=== PATIENT | female | born 1960 | race Caucasian/White ===

== ENCOUNTER 2016-12-04 14:06 | Emergency (ER) | payer OTHER, SELFPAY ==
[2016-12-04] MEDS ORDERED: Ondansetron ODT 4 MG TAB ONE (15:07)
--- NOTE | 2016-12-04 15:29 | ERRECORD ---
[facility] EMERGENCY RECORD HPI HEAD INJURY (14:40 WMEI) CHIEF COMPLAINT: Patient presents for evaluation of head injury. HISTORIAN: History provided by patient. MECHANISM OF INJURY: Mechanism of injury: Blunt trauma, by direct blow, pipe fell on crown of head no loc but dazed and weak kneed able to ambulate. LOCATION: Symptoms are localized, most severe in the crown midline. TIME COURSE: Sudden onset of symptoms, 1, hours prior to arrival. ASSOCIATED WITH: No associated dizziness, Associated with nausea, No associated vomiting. RELIEVED BY: Patient's condition relieved by nothing. ROS (14:43 WMEI) CONSTITUTIONAL: Historian denies chills, denies fever, denies lethargy. EYES: Historian denies eye pain, denies eye discharge. ENT: Historian denies rhinorrhea, denies sore throat. CARDIOVASCULAR: Historian denies chest pain, no radiation. RESPIRATORY: Historian denies cough, denies shortness of breath. GI: Historian denies abdominal pain, reports nausea. GENITOURINARY FEMALE: Historian denies urgency. MUSCULOSKELETAL: Historian denies back pain, denies fall. SKIN: Historian denies skin changes, denies skin lesions. NEUROLOGIC: Historian denies confusion, denies dizziness, denies focal weakness, denies mental status changes. PSYCHIATRIC: Historian denies alcohol abuse, denies memory loss, denies phobias. PAST MEDICAL HISTORY (14:12 LGIB) MEDICAL HISTORY: Flu vaccine not up to date, Tetanus immunization up to date, Pneumococcal vaccine not up to date, Past medical history includes musculoskeletal disorder, ankylosing spondylitis, Past medical history includes pulmonary disease, chronic obstructive pulmonary disease, PNEUMONIA IN 2012-HOSPITALIZED. Past medical history includes gastrointestinal disease, gastroesophageal reflux disease. FEMALE SURGICAL HISTORY: COLON POLYPS, RIGHT BREAST-TOOK OUT 1/3 OF BREAST-NON CANCEROUS, Surgical history of appendectomy, Surgical history of hysterectomy, Surgical history of tonsillectomy.bilat shoulder surgeries, artifial lt knee, plate to neck. 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 PSYCHIATRIC HISTORY: Psychiatric history includes, anxiety,. SOCIAL HISTORY: Patient denies alcohol use, Patient denies drug use, Patient is a former tobacco user. FAMILY HISTORY: Paternal history of cardiac disease:, coronary artery disease, Treated with stent placement, PACEMAKER, Maternal history of cardiac disease, congestive heart failure, myocardial infarction, arrhythmia, atrial fibrillation, Maternal &a-1R&a+25V*p+0X*[id number]*c202B*c15G*c2P*p-0X&a-25V&a+1R Name: Ann Villalobos : 1960 F56 MedRec: [id number] AcctNum: [id number] Prepared: Sat Dec 04, 2016 19:52 by Interface Page 1 of 3 pMD [facility] EMERGENCY RECORD history of malignancy, primary site colon, treated with chemotherapy, treated with radiation, treated with surgery, Maternal history of pulmonary disease, chronic obstructive pulmonary disease, Offspring history of cardiac disease, TETRALOGY OF FALLOT. KNOWN ALLERGIES Adult Aspirin: Reaction: Nausea, - upset stomach penicillin G sodium (Unconfirmed) Penicillins Serzone CURRENT MEDICATIONS (14:11 LGIB) None VITAL SIGNS VITAL SIGNS: BP: 127/77, Pulse: 72, Resp: 16 (Non-Labored), Temp: 98 (Oral), Pain: 9, O2 sat: 100 on Room Air, Time: 12/04/2016 14:12. (14:12 LGIB) BP: 125/87, Pulse: 81, Resp: 16 (Non-Labored), O2 sat: 97 on Room Air, Time: 12/04/2016 15:07. (15:07 LGIB) PHYSICAL EXAM (14:46 WMEI) CONSTITUTIONAL: Vital Signs Reviewed, Patient appears non toxic, Patient alert and oriented to person, place and time. HEAD: no Robles's sign, No racoon sign, No contusions, no abrasions, No Lacerations, normocephalic. EYES: Pupils equally round and reactive to light, Extraocular muscles intact, Conjunctiva normal, Sclera normal. ENT: Ear exam normal, Nose exam normal, Pharynx exam normal. NECK: Neck exam included findings of normal range of motion, Trachea midline. RESPIRATORY CHEST: Breath sounds clear, Chest exam included findings of chest movement symmetrical. CARDIOVASCULAR: Cardiovascular exam included findings of heart rate regular rate and rhythm, Heart sounds normal. ABDOMEN FEMALE: Abdominal exam included findings of abdomen nontender, Bowel sounds normal. BACK: Back exam included findings of normal inspection, range of motion normal. UPPER EXTREMITY: Upper extremity exam included findings of inspection normal, Range of motion normal, Motor strength normal. LOWER EXTREMITY: Lower extremity exam included findings of inspection normal, Range of motion normal, Motor strength normal. NEURO: [place] coma scale 15, Neuro exam findings include patient oriented to person, place and time, Speech normal, Gait normal. SKIN: Skin exam included findings of skin warm, dry, and normal in color. LYMPHATIC: Lymphatic exam normal. PSYCHIATRIC: Psychiatric exam included findings of patient oriented to person place and time, Normal affect, Judgment normal, &a-1R&a+25V*p+0X*x6134H*c202B*c15G*c2P*p-0X&a-25V&a+1R Name: Ann Villalobos : 1960 F56 MedRec: [id number] AcctNum: [id number] Prepared: Sat Dec 04, 2016 19:52 by Interface Page 2 of 3 pMD [facility] EMERGENCY RECORD Insight normal. RADIOLOGYINTERPRETATION (14:57 WMEI) CORN CUTTER: Preliminary review of CT scans by, Radiologist, negative of head. MEDICATION ADMINISTRATION SUMMARY Drug Name: Zofran ODT, Dose Ordered: 4 mg, Route: Sublingual, Status: Given, Time: 15:15 12/04/2016, Detailed record available in Medication Service section. PROBLEM LIST No recorded problems DIAGNOSIS (14:59 WMEI) FINAL: PRIMARY: Head injury, no LOC. PRESCRIPTION No recorded prescriptions DISPOSITION PATIENT: Disposition Type: Discharge, Disposition: *Discharge Home. (14:59 WMEI) Patient left the department. (15:19 LGIB) Cintron: LGIB=SAEED Sanford Lauren WMEI=DO Nevarez William &a-1R&a+25V*p+0X*[id number]*c202B*c15G*c2P*p-0X&a-25V&a+1R Name: Ann Villalobos : 1960 F56 MedRec: [id number] AcctNum: [id number] Prepared: Sat Dec 04, 2016 19:52 by Interface Page 3 of 3 pMD MTDD
--- NOTE | 2016-12-04 15:33 | PICIS ---
[facility] EMERGENCY RECORD TRIAGE ([facility] Dec 04, 2016 14:10 LGIB) TRIAGE NOTES: a metal pipe that was leaned up against a wall fell and hit pt in head. AOX4, NAD, RR EVEN AND UNLABORED. ANSWERS QUESTIONS APPROPRIATELY. top of head hurts. ([facility] Dec 04, 2016 14:10 LGIB) PATIENT: NAME: Ann Villalobos, AGE: 56, GENDER: female, : Tue1960, TIME OF GREET: [facility] Dec 04, 2016 14:07, PREFERRED LANGUAGE: Ugandan, ETHNICITY: Not or , HIGH ALERT: HIGH ALERT 4, ECODE BILLING MAP: [facility], SSN: [id number], Zip Code: [address], KG WEIGHT: 58.97, PHONE: , , , PERSON ID: [id number], PCP: DO GONZALEZ KRISTEL. ([facility] Dec 04, 2016 14:10 LGIB) PAYMENT: [facility] Self Pay. (14:54) COMPLAINT: HIGH RISK COMPLAINT: Head Injury. ([facility] Dec 04, 2016 14:10 LGIB) ADMISSION: URGENCY: 3 Urgent, ADMISSION SOURCE: Home, TRANSPORT: CAR, BED: ER -03. ([facility] Dec 04, 2016 14:10 LGIB) SIRS SCORING: Heart Rate 55-109 (0), Temp range 96.8-101.1 (0), respiratory rate 12-24 (0), Mental Status altered: no (0), Total SIRS Score 0. (14:22 LGIB) TREATMENTS IN PROGRESS: Treatments given Prehospital: none. (14:12 LGIB) PROVIDERS: TRIAGE NURSE: Sharon Sanford RN. ([facility] Dec 04, 2016 14:10 LGIB) PREVIOUS VISIT ALLERGIES: Adult Aspirin, penicillin G sodium, Serzone. ([facility] Dec 04, 2016 14:10 LGIB) Adult Aspirin, penicillin G sodium, Serzone. (14:12 LGIB) KNOWN ALLERGIES Adult Aspirin: Reaction: Nausea, - upset stomach penicillin G sodium (Unconfirmed) Penicillins Serzone CURRENT MEDICATIONS (14:11 LGIB) None VITAL SIGNS VITAL SIGNS: BP: 127/77, Pulse: 72, Resp: 16 (Non-Labored), Temp: 98 (Oral), Pain: 9, O2 sat: 100 on Room Air, Time: 12/04/2016 14:12. (14:12 LGIB) BP: 125/87, Pulse: 81, Resp: 16 (Non-Labored), O2 sat: 97 on Room Air, Time: 12/04/2016 15:07. (15:07 LGIB) NURSING ASSESSMENT: NEURO (14:22 LGIB) GCS: (6) Obeying command:, (5) Orientated:, (4) Spontaneous eye opening., Result: 15. CONSTITUTIONAL: Complex assessment performed, Patient arrives, via hospital wheelchair, Gait steady, History obtained from patient, Patient appears comfortable, Patient cooperative, Patient alert, &a-1R&a+25V*p+0X*z4994G*c202B*c15G*c2P*p-0X&a-25V&a+1R Name: Ann Villalobos : 1960 F56 MedRec: [id number] AcctNum: [id number] Prepared: Sat Dec 04, 2016 19:52 by Interface Page 1 of 5 pMD [facility] EMERGENCY RECORD Oriented to person, place and time, Skin warm, Skin dry, Skin normal in color, Mucous membranes pink, Mucous membranes moist, Patient is well-groomed, Patient complains of HEAD INJURY, METAL PIPE HIT HEAD WHEN IT FELL FROM BEING LEANED AGAINST A WALL. PT IS AOX4, ANSWERING QUESTIONS APPROPRIATELY. PAIN: aching pain, diffusely to the head, on a scale 0-10 patient rates pain as 9, Nothing has been tried to alleviate the pain. NEURO: Pupils equally round and reactive to light, Left pupil 3 mm in size, Right pupil 3 mm in size, Able to close eyes, Face symmetrical, Speech normal, Hand grasps equal, Upper extremity strength strong, no numbness to upper extremities, Lower extremity strength strong, Foot press equal, no numbness to lower extremities. ENT: Ear assessment findings include ear normal to inspection, Nasal assessment findings include nose normal to inspection, Mouth and throat assessment findings include mouth inspection normal. SAFETY: Side rails up, Cart/Stretcher in lowest position, Call light within reach, Hospital ID band on. NURSING PROCEDURE: DISCHARGE NOTE (15:20 LGIB) DISCHARGE: Patient discharged to home, ambulating without assistance, friend driving, unaccompanied, Summary of Care printed/ provided, Patient requested and was provided an electronic copy of Discharge Instructions, Discharge instructions given to patient, Simple or moderate discharge teaching performed, Above person(s) verbalized understanding of discharge instructions and follow-up care, Patient treated and evaluated by physician. BELONGINGS: Belongings and valuables with patient at time of discharge include:, Belongings remain with patient, Valuables remain with patient. ORDER DETAILS Order Name: CT Brain WO Con, Status: Active, Time: 14:40 12/04/2016, User: [facility], - Ordered for: DO Nevarez William, - Entered by: DO Nevarez William - Sat Dec 04, 2016 14:40, - Quantity: 1. MEDICATION ADMINISTRATION SUMMARY Drug Name: Zofran ODT, Dose Ordered: 4 mg, Route: Sublingual, Status: Given, Time: 15:15 12/04/2016, Detailed record available in Medication Service section. MEDICATION SERVICE (15:15 [facility]) Zofran ODT: Order: Zofran ODT (ondansetron) - Dose: 4 mg : Sublingual Schedule: Now Ordered by: Dawood Nevarez DO &a-1R&a+25V*p+0X*[id number]*c202B*c15G*c2P*p-0X&a-25V&a+1R Name: Ann Villalobos : 1960 F56 MedRec: [id number] AcctNum: [id number] Prepared: Sat Dec 04, 2016 19:52 by Interface Page 2 of 5 D [facility] EMERGENCY RECORD Entered by: Dawood Nevarez DO Sat Dec 04, 2016 15:07 , Acknowledged by: Eileen Velez LVN Sat Dec 04, 2016 15:17 Documented as given by: Sharon Sanford RN Sat Dec 04, 2016 15:15 Patient, Medication, Dose, Route and Time verified prior to administration. Site: Medication administered S.L., Correct patient, time, route, dose and medication confirmed prior to administration, Patient advised of actions and side-effects prior to administration, Allergies confirmed and medications reviewed prior to administration, Patient in position of comfort, Side rails up, Cart in lowest position. HPI HEAD INJURY (14:40 WMEI) CHIEF COMPLAINT: Patient presents for evaluation of head injury. HISTORIAN: History provided by patient. MECHANISM OF INJURY: Mechanism of injury: Blunt trauma, by direct blow, pipe fell on crown of head no loc but dazed and weak kneed able to ambulate. LOCATION: Symptoms are localized, most severe in the crown midline. TIME COURSE: Sudden onset of symptoms, 1, hours prior to arrival. ASSOCIATED WITH: No associated dizziness, Associated with nausea, No associated vomiting. RELIEVED BY: Patient's condition relieved by nothing. ROS (14:43 WMEI) CONSTITUTIONAL: Historian denies chills, denies fever, denies lethargy. EYES: Historian denies eye pain, denies eye discharge. ENT: Historian denies rhinorrhea, denies sore throat. CARDIOVASCULAR: Historian denies chest pain, no radiation. RESPIRATORY: Historian denies cough, denies shortness of breath. GI: Historian denies abdominal pain, reports nausea. GENITOURINARY FEMALE: Historian denies urgency. MUSCULOSKELETAL: Historian denies back pain, denies fall. SKIN: Historian denies skin changes, denies skin lesions. NEUROLOGIC: Historian denies confusion, denies dizziness, denies focal weakness, denies mental status changes. PSYCHIATRIC: Historian denies alcohol abuse, denies memory loss, denies phobias. PAST MEDICAL HISTORY (14:12 LGIB) MEDICAL HISTORY: Flu vaccine not up to date, Tetanus immunization up to date, Pneumococcal vaccine not up to date, Past medical history includes musculoskeletal disorder, ankylosing spondylitis, Past medical history includes pulmonary disease, chronic obstructive pulmonary disease, PNEUMONIA IN 2012-HOSPITALIZED. Past medical history includes gastrointestinal disease, gastroesophageal reflux disease. FEMALE SURGICAL HISTORY: COLON POLYPS, RIGHT BREAST-TOOK &a-1R&a+25V*p+0X*[id number]*c202B*c15G*c2P*p-0X&a-25V&a+1R Name: Ann Villalobos : 1960 F56 MedRec: [id number] AcctNum: [id number] Prepared: Steven Dec 04, 2016 19:52 by Interface Page 3 of 5 pMD [facility] EMERGENCY RECORD OUT 1/3 OF BREAST-NON CANCEROUS, Surgical history of appendectomy, Surgical history of hysterectomy, Surgical history of tonsillectomy.bilat shoulder surgeries, artifial lt knee, plate to neck. 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 PSYCHIATRIC HISTORY: Psychiatric history includes, anxiety,. SOCIAL HISTORY: Patient denies alcohol use, Patient denies drug use, Patient is a former tobacco user. FAMILY HISTORY: Paternal history of cardiac disease:, coronary artery disease, Treated with stent placement, PACEMAKER, Maternal history of cardiac disease, congestive heart failure, myocardial infarction, arrhythmia, atrial fibrillation, Maternal history of malignancy, primary site colon, treated with chemotherapy, treated with radiation, treated with surgery, Maternal history of pulmonary disease, chronic obstructive pulmonary disease, Offspring history of cardiac disease, TETRALOGY OF FALLOT. PHYSICAL EXAM (14:46 WMEI) CONSTITUTIONAL: Vital Signs Reviewed, Patient appears non toxic, Patient alert and oriented to person, place and time. HEAD: no Robles's sign, No racoon sign, No contusions, no abrasions, No Lacerations, normocephalic. EYES: Pupils equally round and reactive to light, Extraocular muscles intact, Conjunctiva normal, Sclera normal. ENT: Ear exam normal, Nose exam normal, Pharynx exam normal. NECK: Neck exam included findings of normal range of motion, Trachea midline. RESPIRATORY CHEST: Breath sounds clear, Chest exam included findings of chest movement symmetrical. CARDIOVASCULAR: Cardiovascular exam included findings of heart rate regular rate and rhythm, Heart sounds normal. ABDOMEN FEMALE: Abdominal exam included findings of abdomen nontender, Bowel sounds normal. BACK: Back exam included findings of normal inspection, range of motion normal. UPPER EXTREMITY: Upper extremity exam included findings of inspection normal, Range of motion normal, Motor strength normal. LOWER EXTREMITY: Lower extremity exam included findings of inspection normal, Range of motion normal, Motor strength normal. NEURO: [place] coma scale 15, Neuro exam findings include patient oriented to person, place and time, Speech normal, Gait normal. SKIN: Skin exam included findings of skin warm, dry, and normal in color. LYMPHATIC: Lymphatic exam normal. PSYCHIATRIC: Psychiatric exam included findings of patient oriented to person place and time, Normal affect, Judgment normal, Insight normal. EVENTS TRANSFER: Triage to Emergency Emergency Room -03. (Sat Nov 28, &a-1R&a+25V*p+0X*z0044T*c202B*c15G*c2P*p-0X&a-25V&a+1R Name: Ann Villalobos : 1960 F56 MedRec: [id number] AcctNum: [id number] Prepared: Steven Dec 04, 2016 19:52 by Interface Page 4 of 5 pMD [facility] EMERGENCY RECORD 2017 14:10 LGIB) Removed from Emergency Emergency Room -03. (15:19 LGIB) RADIOLOGYINTERPRETATION (14:57 WMEI) MEDICAL ADMINISTRATOR: Preliminary review of CT scans by, Radiologist, negative of head. PROBLEM LIST No recorded problems DIAGNOSIS (14:59 WMEI) FINAL: PRIMARY: Head injury, no LOC. DISPOSITION PATIENT: Disposition Type: Discharge, Disposition: *Discharge Home. (14:59 WMEI) Patient left the department. (15:19 LGIB) INSTRUCTION (14:59 WMEI) DISCHARGE: CLOSED HEAD INJURY NO WAKEUP ADULT. FOLLOWUP: DO GONZALEZ KRISTEL, [facility], [address] [place] [id number], [phone]. SPECIAL: Follow-up with your primary physician as needed. PRESCRIPTION No recorded prescriptions IMAGING *DISCHARGE INSTRUCTIONS RECEIPT: Image captured from scanner. (15:55 LGIB) *SUPPLY CHARGE SHEET: Image captured from scanner. (15:56 LGIB) ADMIN (19:46 WMEI) DIGITAL SIGNATURE: DO Nevarez William. Cintron: LGIB=SAEED Sanford, Sharon WMEI=DO Nevarez William &a-1R&a+25V*p+0X*x5782Z*c202B*c15G*c2P*p-0X&a-25V&a+1R Name: Ann Villalobos : 1960 F56 MedRec: [id number] AcctNum: [id number] Prepared: Steven Dec 04, 2016 19:52 by Interface Page 5 of 5 pMD MTDD
--- NOTE | 2016-12-04 20:03 | CT ---
CT BRAIN WITHOUT CONTRAST 12/04/[address] was done following trauma. The ventricles are normal in size with no shift. No intr acranial bleeding or extra-axial hematoma was seen. There is no sign of stroke, mass or edema. The c alvarium appears intact and the sphenoid sinus is clear. IMPRESSION: No acute intracranial findings. POS: HOME
== END 2016-12-04 15:11 | disposition home or self-care (01) ==
LOC: BURERS 14:06
DX: S09.90XA Unspecified injury of head, initial encounter (principal); J44.9 Chronic obstructive pulmonary disease, unspecified; K21.9 Gastro-esophageal reflux disease without esophagitis; F41.9 Anxiety disorder, unspecified; Z87.891 Personal history of nicotine dependence; Z87.01 Personal history of pneumonia (recurrent); W19.XXXA Unspecified fall, initial encounter
CPT/HCPCS: 70450; Q0162

== ENCOUNTER 2020-02-16 13:04 | Emergency (ER) | payer OTHER, SELFPAY ==
[2020-02-16] MEDS ORDERED: Ibuprofen 200 MG TAB ONE (13:20)
--- NOTE | 2020-02-16 15:32 | RAD ---
RIGHT WRIST THREE VIEWS: 02/16/20 No fracture or acute bony change was seen. The carpal relationships seem normal. There might be some faint calcification in the triangular fibrocartilage of the wrist which can sometimes indicate variou s calcium deposition diseases. IMPRESSION: No acute finding. POS: HOME
--- NOTE | 2020-02-16 15:34 | RAD ---
LUMBAR SPINE THREE VIEWS: 02/16/20 Comparison is made with the prior study of 10/11/11. Scoliosis convexed right is present as usual. A prior lumbar fusion at L3-l4 with laminectomies is pr esent as previously also. No acute fracture was seen. There is some slight depression of the superior end plate of L1 that is n o different than before. Very minimal compression of T12 is also the same. The SI joints are unremark able. IMPRESSION: No acute changes since the 10/11/11 study. POS: HOME
== END 2020-02-16 14:05 | disposition home or self-care (01) ==
LOC: BURERS 13:04
DX: S60.211A Contusion of right wrist, initial encounter (principal); S30.0XXA Contusion of lower back and pelvis, initial encounter; S50.11XA Contusion of right forearm, initial encounter; S80.212A Abrasion, left knee, initial encounter; S80.211A Abrasion, right knee, initial encounter; J44.9 Chronic obstructive pulmonary disease, unspecified; K21.9 Gastro-esophageal reflux disease without esophagitis; F41.9 Anxiety disorder, unspecified; F32.9 Major depressive disorder, single episode, unspecified; Z87.891 Personal history of nicotine dependence; Y08.09XA Assault by strike by other specified type of sport equipment, initial encounter; Y93.64 Activity, baseball
CPT/HCPCS: 72100

== ENCOUNTER 2020-02-25 05:06 | Emergency (ER) | payer SELFPAY | END 2020-02-25 05:45 | disposition home or self-care (01) | LOC: BURERS 05:06 | DX: S60.511A Abrasion of right hand, initial encounter (principal); S80.812A Abrasion, left lower leg, initial encounter; M25.531 Pain in right wrist; Y04.2XXA Assault by strike against or bumped into by another person, initial encounter | CPT/HCPCS: 99283 ==

== ENCOUNTER 2021-04-24 22:38 | Emergency (ER) | payer SELFPAY ==
[2021-04-24] MEDS ORDERED: Lidocaine 1% w/Epinephrine 1:100K 20 ML VIAL ONE (23:02)
== END 2021-04-24 23:25 | disposition home or self-care (01) ==
LOC: BURERS 22:38
DX: S51.812A Laceration without foreign body of left forearm, initial encounter (principal); J44.9 Chronic obstructive pulmonary disease, unspecified; K21.9 Gastro-esophageal reflux disease without esophagitis; Z87.891 Personal history of nicotine dependence; Z85.038 Personal history of other malignant neoplasm of large intestine; W26.8XXA Contact with other sharp object(s), not elsewhere classified, initial encounter
CPT/HCPCS: 12001

== ENCOUNTER 2021-08-15 11:15 | Emergency (ER) | payer OTHER, SELFPAY ==
[2021-08-15] MEDS ORDERED: Ibuprofen 800 MG TAB ONE (11:53)
[2021-08-15] MEDS ORDERED: Acetaminophen 500 MG TAB ONE (12:24)
== END 2021-08-15 12:34 ==
LOC: BURERS 11:15
DX: S63.502A Unspecified sprain of left wrist, initial encounter (principal); S60.222A Contusion of left hand, initial encounter; S50.12XA Contusion of left forearm, initial encounter; W01.10XA Fall on same level from slipping, tripping and stumbling with subsequent striking against unspecified object, initial encounter; J45.909 Unspecified asthma, uncomplicated; K21.9 Gastro-esophageal reflux disease without esophagitis

== ENCOUNTER 2021-11-25 17:24 | Emergency (ER) | payer SELFPAY ==
[2021-11-25] MEDS ORDERED: Ketorolac Tromethamine 30 MG/ML VIAL ONE (18:13)
[2021-11-25] MEDS ORDERED: Metoclopramide HCl 10 MG/2 ML VIAL ONE (18:13)
== END 2021-11-25 18:33 | disposition home or self-care (01) ==
LOC: BURERS 17:24
DX: B34.9 Viral infection, unspecified (principal); K21.9 Gastro-esophageal reflux disease without esophagitis; J44.9 Chronic obstructive pulmonary disease, unspecified; F17.210 Nicotine dependence, cigarettes, uncomplicated
CPT/HCPCS: 96372; 99283; J1885; J2765

== ENCOUNTER 2021-12-04 01:12 | Emergency (ER) | payer SELFPAY ==
[2021-12-04 02:25] LABS: #Eosinphils 0.1 thou/uL (0.0-0.7); #Lymphocytes 1.3 thou/uL (1.20-3.40); #Monocytes 0.5 thou/uL (0.11-0.59); #Neutrophils 1.6 thou/uL (1.40-6.50); %Basophils 0.5 % (0.0-1.0); %Eosinophils 1.6 % (0.0-10.0); %Lymphocytes 38.1 % (21.0-51.0); %Monocytes 13.2 % (0.0-10.0); %Neutrophils 46.6 % (42.0-75.0); Hemoglobin 12.2 g/dL (12.0-16.0); Mean Corpuscular HGB CONC 33.9 g/dL (32.0-36.0); Mean Corpuscular Hemoglobin 32.2 pg (27.0-31.0); Mean Corpuscular Volume 95.1 fL (78.0-98.0); Mean Platelet Volume 7.9 fL (7.4-10.4); Platelet Count 137 thou/uL (130-400); Red Blood Cell (RBC) Count 3.78 mill/uL (4.20-5.40); White Blood Cell (WBC) Count 3.4 thou/uL (4.8-10.8)
[2021-12-04] MEDS ORDERED: Acetaminophen 500 MG TAB ONE (02:30)
[2021-12-04] MEDS ORDERED: Clindamycin/D5W 600 mg/50 ml Premix Bag ONE (02:30)
[2021-12-04 02:41] LABS: ALT (SGPT) 13 U/L (8-55); AST (SGOT) 21 U/L (5-34); Albumin 4.2 g/dL (3.4-4.8); Alkaline Phosphatase 69 U/L (40-110); BUN (Urea Nitrogen) 17 mg/dL (9.8-20.1); Bilirubin, Total 0.5 mg/dL (0.2-1.2); Calc. Creatinine Clearance 0 mL/min (70-130); Calcium 9.3 mg/dL (7.8-10.44); Carbon Dioxide 23 mmol/L (23-31); Globulin 2.6 g/dL (2.4-3.5); Glucose 114 mg/dL (80-115); Protein, Total 6.8 g/dL (5.8-8.1)
[2021-12-04 03:07] LABS: Chloride 108 mmol/L (98-107); Potassium 3.8 mmol/L (3.5-5.1); Sodium 142 mmol/L (136-145)
[2021-12-04 03:10] LABS: Anion Gap 15 mmol/L (10-20)
[2021-12-04 04:47] LABS: Bilirubin Negative (Negative); Blood, Urine Negative (Negative); Clarity Clear (Clear); Glucose, Urine (Dipstick) Negative (Negative); Ketone, Urine Negative (Negative); Leukocyte Trace (Negative); Nitrite Negative (Negative); Protein, Urine (Dipstick) Negative (Neg-Trace); Urobilinogen 0.2 mg/dL (Less than 2); pH, Urine 6.5 (5.0-9.0)
[2021-12-04 05:00] LABS: Bacteria/HPF Rare-Few HPF (None Seen); RBC/HPF None Seen HPF (0-3); Squamous Epithelial 0-3 HPF (0-3); WBC/HPF 0-3 HPF (0-3)
== END 2021-12-04 01:33 | disposition home or self-care (01) ==
LOC: BURERS 01:12
DX: U07.1 COVID-19 (principal); K04.7 Periapical abscess without sinus; H92.01 Otalgia, right ear; K21.9 Gastro-esophageal reflux disease without esophagitis; J44.9 Chronic obstructive pulmonary disease, unspecified; F17.210 Nicotine dependence, cigarettes, uncomplicated; Z85.038 Personal history of other malignant neoplasm of large intestine
CPT/HCPCS: 71045; 80053; 81003; 81015; 83605; 85025; 93005; 96374; J3490

== ENCOUNTER 2022-05-13 09:41 | Emergency (ER) | payer OTHER ==
[2022-05-13] MEDS ORDERED: Acetaminophen 500 MG TAB ONE (10:05)
== END 2022-05-13 11:27 | disposition home or self-care (01) ==
LOC: BURERS 09:41
DX: U07.1 COVID-19 (principal); I51.7 Cardiomegaly; K21.9 Gastro-esophageal reflux disease without esophagitis; J44.9 Chronic obstructive pulmonary disease, unspecified; F17.210 Nicotine dependence, cigarettes, uncomplicated; M45.9 Ankylosing spondylitis of unspecified sites in spine; Z85.038 Personal history of other malignant neoplasm of large intestine
CPT/HCPCS: 87804; 93005; U0003; U0005

== ENCOUNTER 2023-12-21 09:32 | Emergency (ER) | payer MEDICARE, SELFPAY ==
[2023-12-21] MEDS ORDERED: Ketorolac Tromethamine 30 MG (1 mL) VIAL ONE (09:56)
== END 2023-12-21 11:57 | disposition home or self-care (01) ==
LOC: BURERS 09:32
DX: S62.346A Nondisplaced fracture of base of fifth metacarpal bone, right hand, initial encounter for closed fracture (principal); S60.211A Contusion of right wrist, initial encounter; J44.9 Chronic obstructive pulmonary disease, unspecified; F17.210 Nicotine dependence, cigarettes, uncomplicated; W23.1XXA Caught, crushed, jammed, or pinched between stationary objects, initial encounter
CPT/HCPCS: 29125; 96372; J1885